=== PATIENT | male | born 1990 | race Caucasian/White ===

== ENCOUNTER 2018-11-07 14:33 | Inpatient (IN) ==
[2018-11-07 14:42] VITALS: BMI 23.1
--- NOTE | 2018-11-07 14:48 | DR.GENAD ---
HPI Time Seen Time Seen by Provider: 11/07/18 14:47 PCP Primary Care Physician: Kaya DO HPI Comment HPI Comment: PATIENT IS Complaint/Symptoms Chief Complaint Doctors Comments: FOUND ON FLOOR IN A SCHUSTER BLOOD 3 DAYS AGO. Chief Complaint:: PT. C/O LEFT LEG NUMBNESS, LEFT WRIST PAIN. LEFT ARM IS SWOLLEN. PT. STATES HE HAS BEEN FALLING SINCE YESTERDAY. PT. AMBULATORY WITH CRUTCHES. PT. STATES HIS FOUND HIM LYING IN THE FLOOR THIS AFTERNOON. PT. STATES "I MUST HAVE FALLEN OUT OF THE BED." PT. DOES NOT RECALL EVENTS. PT. STATES HE HAD AN OUT-PATIENT MRI DONE HERE YESTERDAY. PT. C/O RASH AND BLISTERS TO LEFT SIDE OF ABDOMEN. PT. WAS ALSO SEEN IN [facility] ON 11/06/18 AND WAS DIAGNOSED WITH SYNCOPE & LEFT ARM CONTUSION. 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 Past Surgical History: Yes Surgical History: Other Past Surgical History Comment: EYE SURGERY Family History History of Family Medical Conditions: No Social History Does patient currently use any type of tobacco product: Yes Have you used tobacco products in the last 12 months: Yes Type of Tobacco Use: Cigarettes Does any household member use tobacco: Yes Alcohol Use: None Do you use any recreational Drugs:: No Lives With: Spouse Lives Where: Home infectious screening In the last 2 months have you had wt loss of >10#?: NO Have you had fever, night sweats or hemotysis?: No Have you traveled outside the country in the last 6 months?: No Isolation: Standard ROS Review of Systems Constitutional: Weakness and Fatigue; negative Chills, Diaphoresis, Fever, Malaise and Loss of Appetite Eyes: Other (LEFT EYE BLINDNESS 2YRS AGO DUE TO TRAUMA.); negative Eye Pain, Blurred Vision, Tearing, Discharge, Photophobia and Diplopia ENTM: negative Ear Pain, Ear Discharge, Nose Discharge, Nose Congestion, Throat Pain and Tooth/Dental Pain Respiratoy: negative Moist Cough, Short of Breath, Wheezing and Hemoptysis Cardiovascular: negative Chest Pain, Edema and Palpitations Gastrointestinal/Abdominal: Diarrhea; negative Abdominal Pain, Constipation, [place] and Vomiting Genitourinary: No Symptoms Reported and See HPI; negative Dysuria, Frequency and Hematuria Neurological: Numbness, Paresthesia, Tingling, Weakness, Problems Walking and Speech Problem; negative Headache, Tremors and Dizziness Musculoskeletal: Back Pain (LOWER BACK PAIN.), Wrist (LT.), Knee (LT.) and Ankle (LT.) Integumentary: Rash and Bruises; negative Juandice Hematologic/Lymphatic: negative Easy Bruising, Swollen Glands and Lymphadenopathy Endocrine: Decreased Appetite; negative Increased Thirst and Increased Urine Psychiatric: No Symptoms Reported All Other Systems: Reviewed and Negative PE Vital Signs Vitals: Temperature 97.2 F Pulse Rate [Apical] 120 Pulse Rate 155 Respiratory Rate 12 Blood Pressure [Right Arm] 150/80 Blood Pressure 117/59 O2 Sat by Pulse Oximetry 97 General Limitations: No Limitations General Appearance: Alert and In No Apparent Distress Head Head Exam: Other Eyes Eye exam: Normal Appearance ENT ENT Exam: Normal Exam External Ear Exam: Normal External Inspection TM/Canal Exam: Bilateral: Normal Nose Exam: Normal Nose Exam Mouth Exam: Normal Inspection Throat Exam: Normal Inspection Neck Neck Exam: Normal Inspection Chest Chest Inspection: Normal Inspection Respiratory Respiratory Exam: Normal Lung Sounds Bilat Respiratory Exam: Bilateral: Clear to Auscultation Cardiovascular Cardiovascular Exam: Regular Rate and Normal Rhythm Abdominal Exam Abdominal Exam: Normal Inspection, Normal Bowel Sounds and Soft Extremities Extremities Exam: Normal Inspection Back Back Exam: Normal Inspection Neurologic Neurological Exam: Alert and Oriented X3 Psychiatric Psychiatric Exam: Normal Affect and Normal Mood Skin Skin Exam: Warm, Dry, Intact and Normal Color ROR Labs Reviewed Result Diagrams: 11/07/18 15:27 11/07/18 15:27 Laboratory: WBC 17.6 X10^3/uL (3.6-10.0) H 11/07/18 15:27 RBC 5.47 X10^6/uL (4.7-6.0) 11/07/18 15:27 Hgb 15.9 g/dL (13.5-18.0) 11/07/18 15:27 Hct 46.3 % (42.0-54.0) 11/07/18 15:27 MCV 84.8 fL (80.0-100.0) 11/07/18 15:27 MCH 29.2 pg (27.0-34.0) 11/07/18 15: MCHC 34.4 g/dL (33.0-35.0) 11/07/18: RDW 14.0 % (11.6-16.5) 11/07/18 15: Plt Count 173 X10^3/uL (150.0-450.0) 11/07/18: MPV 9.7 fL (7.4-11.0) 11/07/18: Neut % (Auto) 72.8 % (42.0-75.0) 11/07/18: Lymph % (Auto) 6.7 % (21.0-51.0) L 11/07/18: [place] % (Auto) 19.9 % (0.0-13.0) H 11/07/18: Eos % (Auto) 0.1 % (0.9-2.9) L 11/07/18 Baso % (Auto) 0.5 % (0.2-1.0) 11/07/18 Neut # (Auto) 12.8 x10^3/uL (2.2-4.8) H 11/07/18: Lymph # (Auto) 1.2 X10^3/uL (1.3-2.9) L 11/07/18 15: [place] # (Auto) 3.5 x10^3/uL (0.3-0.8) H 11/07/18: Eos # (Auto) 0.0 x10^3/uL (0.0-0.2) 11/07/18 Baso # (Auto) 0.1 X10^3/uL (0.0-0.1) 11/07/18 Absolute Nucleated RBC 0.1 /100WBC 11/07/18 INR Target Range - 11/07/18 INR 1.14 (0.8-1.3) 11/07/18 APTT 30.6 SECONDS (22.9-36.5) 11/07/18 PTT Comment - 11/07/18 Sodium 124 mmol/L (136-145) L* 11/07/18 15:27 Corrected Sodium 125 mmol/L (136-145) L 11/07/18 15:27 Potassium 5.8 mmol/L (3.5-5.1) H 11/07/18 15:27 Chloride 88 mmol/L (98-107) L 11/07/18 15:27 Carbon Dioxide 24.5 mmol/L (21-32) 11/07/18 15:27 BUN 61 mg/dL (7-18) H 11/07/18 15:27 Creatinine 4.42 mg/dL (0.70-1.30) H 11/07/18 15:27 Est GFR (MDRD) Af Amer 20 (>60) L 11/07/18 15:27 Est GFR (MDRD) Non-Af 17 (>60) L 11/07/18 15:27 Glucose 125 mg/dL (65-99) H 11/07/18 15:27 Lactic Acid 0.8 mmol/L (0.4-2.0) 11/07/18 15:27 Calcium 9.5 mg/dL (8.5-10.1) 11/07/18 15:27 Corrected Calcium 10.2 mg/dL (8.5-10.1) H 11/07/18 15:27 Total Bilirubin 0.70 mg/dL (0.2-1.0) 11/07/18 15:27 AST 791 Units/L (15-37) H 11/07/18 15:27 ALT 217 Units/L (12-78) H 11/07/18 15:27 Alkaline Phosphatase 77 Units/L (46-116) 11/07/18 15:27 Creatine Kinase > 73355 Units/L (39-308) H 11/07/18 15:27 CK-MB (CK-2) 125.4 ng/mL (0-4.0) H* 11/07/18 15:27 CK/CKMB % Calc 0.0 % (<4) 11/07/18 15:27 Troponin I < 0.04 ng/mL (0-1.5) 11/07/18 15:27 C-Reactive Protein 310.70 mg/L (0-3.0) H 11/07/18 15:27 Total Protein 7.5 g/dL (6.4-8.2) 11/07/18 15: Albumin 3.1 g/dL (3.4-5.0) L 11/07/18 15: Globulin 4.4 g/dL (2.5-4.5) 11/07/18 15:27 Albumin/Globulin Ratio 0.7 Ratio (1.1-2.1) L 11/07/18 15:27 Specimen Type Catherized urine 11/07/18 18:32 Urine Color Yellow (YELLOW) 11/07/18 18:32 Urine Appearance Slightly hazy (CLEAR) 11/07/18 18:32 Urine pH 5.0 (5.0 - 8.0) 11/07/18 18:32 Ur Specific [place] 1.025 (1.000-1.030) 11/07/18 18:32 Urine Protein 2+ (NEGATIVE) 11/07/18 18:32 Urine Glucose (UA) Negative (NEGATIVE) 11/07/18 18:32 Urine Ketones Negative (NEGATIVE) 11/07/18 18:32 Urine Occult Blood 5+ (NEGATIVE) 11/07/18 18:32 Urine Nitrite Negative (NEGATIVE) 11/07/18 18:32 Urine Bilirubin Negative (NEGATIVE) 11/07/18 18:32 Urine Urobilinogen Normal (NORMAL) 11/07/18 18:32 Ur Leukocyte Esterase Negative (NEGATIVE) 11/07/18 18:32 Urine RBC 10-20 /HPF (NONE SEEN) 11/07/18 18:32 Urine WBC 0-2 /HPF (NONE SEEN) 11/07/18 18:32 Ur Squamous Epith Cells Few /HPF (NEGATIVE) 11/07/18 18:32 Amorphous Sediment 2+ /HPF (NEGATIVE) 11/07/18 18:32 Urine Bacteria Trace /HPF (NEGATIVE) 11/07/18 18:32 Hyaline Casts Few /LPF (NEGATIVE) 11/07/18 18:32 Ur Culture Indicated? No/not indicated 11/07/18 18:32 Urine Opiates Screen Negative (NEG=<300) 11/07/18 18:32 Urine Methadone Screen Negative (NEG=<300) 11/07/18 18:32 Ur Barbiturates Screen Negative (NEG=<200) 11/07/18 18:32 Ur Phencyclidine Scrn Negative (NEG=<25) 11/07/18 18:32 Ur Amphetamines Screen Positive (NEG=<1000) 11/07/18 18:32 U Benzodiazepines Scrn Positive (NEG=<200) 11/07/18 18:32 Urine Cocaine Screen Negative (NEG=<300) 11/07/18 18:32 U Marijuana (THC) Screen Negative (NEG=<50) 11/07/18 18:32
[2018-11-07 15:36] LABS: BASOPHILS # (AUTO) 0.1 X10^3/uL (0.0-0.1); BASOPHILS % (AUTO) 0.5 % (0.2-1.0); EOSINOPHILS % (AUTO) 0.1 % (0.9-2.9); HEMATOCRIT 46.3 % (42.0-54.0); HEMOGLOBIN 15.9 g/dL (13.5-18.0); LYMPHOCYTES # (AUTO) 1.2 X10^3/uL (1.3-2.9); LYMPHOCYTES % (AUTO) 6.7 % (21.0-51.0); MEAN CORPUSCULAR HEMOGLOBIN 29.2 pg (27.0-34.0); MEAN CORPUSCULAR HGB CONC 34.4 g/dL (33.0-35.0); MEAN CORPUSCULAR VOLUME 84.8 fL (80.0-100.0); MEAN PLATELET VOLUME 9.7 fL (7.4-11.0); MONOCYTES # (AUTO) 3.5 x10^3/uL (0.3-0.8); MONOCYTES % (AUTO) 19.9 % (0.0-13.0); NEUTROPHILS # (AUTO) 12.8 x10^3/uL (2.2-4.8); NEUTROPHILS % (AUTO) 72.8 % (42.0-75.0); PLATELET COUNT 173 X10^3/uL (150.0-450.0); RED BLOOD COUNT 5.47 X10^6/uL (4.7-6.0); WHITE BLOOD COUNT 17.6 X10^3/uL (3.6-10.0)
--- NOTE | 2018-11-07 15:39 | RAD ---
History: Left wrist pain after fall 3 days ago Study: Three views of the left wrist Findings: No fracture or subluxation or periosteal reaction or marginal erosion is demonstrated. Impression: Negative Reported By:
[2018-11-07 15:42] LABS: CALCIUM 9.5 mg/dL (8.5-10.1); CARBON DIOXIDE 24.5 mmol/L (21-32); CREATININE 4.42 mg/dL (0.70-1.30)
[2018-11-07 15:47] LABS: ALBUMIN 3.1 g/dL (3.4-5.0); COR CA(FOR HYPOALB) 10.2 mg/dL (8.5-10.1); TOTAL PROTEIN 7.5 g/dL (6.4-8.2)
[2018-11-07 15:51] LABS: LACTIC ACID 0.8 mmol/L (0.4-2.0)
[2018-11-07] MEDS ORDERED: NS 1000 ML 1,000 ML ONE (15:52)
[2018-11-07] MEDS ORDERED: NS 1000 ML 1,000 ML IV ONE (16:08)
--- NOTE | 2018-11-07 17:06 | VAS ---
HISTORY: Severe left arm swelling Study: Venous Doppler Comparison: None TECHNIQUE: Multiple ward scale and color flow Doppler images of the deep venous system were obtained of the left upper extremity FINDINGS: There is normal respiratory phasicity, compression and augmentation of the extremity veins without evidence of acute DVT. IMPRESSION: 1. Negative for DVT. Reported By:
--- NOTE | 2018-11-07 17:21 | RAD ---
HISTORY: Pain, swelling Study: Three views left elbow Comparison: None Findings: Normal alignment. No acute fracture or dislocation. The soft tissues are unremarkable. No joint effusion. IMPRESSION: 1. No acute osseous abnormality. Reported By:
[2018-11-07 17:49] LABS: TROPONIN I < 0.04 ng/mL (0-1.5)
[2018-11-07 17:52] LABS: CREATINE KINASE > 20000 Units/L (39-308); CREATINE KINASE MB 125.4 ng/mL (0-4.0)
[2018-11-07] MEDS ORDERED: NS 1000 ML 1,000 ML IV SCH (18:00)
[2018-11-07] MEDS ORDERED: LR 1000 ML IV 1,000 ML ONE (18:02)
[2018-11-07] MEDS ORDERED: LR 1000 ML IV 1,000 ML IV ONE ×2 (18:36→19:18)
[2018-11-07 18:44] LABS: BILIRUBIN,URINE NEGATIVE (NEGATIVE); BLOOD/HEMOGLOBIN,URINE 5+ (NEGATIVE); GLUCOSE, URINE NEGATIVE (NEGATIVE); KETONES,URINE NEGATIVE (NEGATIVE); LEUKOCYTE ESTERASE ,URINE NEGATIVE (NEGATIVE); NITRITES,URINE NEGATIVE (NEGATIVE); PROTEIN,URINE 2+ (NEGATIVE); UROBILINOGEN,URINE NORMAL (NORMAL)
[2018-11-07 18:48] LABS: AMORPHOUS SEDIMENT,UR 2+ /HPF (NEGATIVE); APPEARANCE,URINE SLIGHTLY HAZY (CLEAR); BACTERIA,URINE TRACE /HPF (NEGATIVE); COLOR,URINE YELLOW (YELLOW); SQUAMOUS EPITHELIAL CELL,UR FEW /HPF (NEGATIVE)
[2018-11-07 18:49] LABS: HYALINE CASTS, URINE FEW /LPF (NEGATIVE)
[2018-11-07] MEDS: LR 1000 ML IV 1,000 ML IV SCH (20:54)
[2018-11-07] MEDS ORDERED: LR 1000 ML IV 1,000 ML IV SCH (21:00)
[2018-11-07] MEDS: BUPRENORPHINE HCL 8 MG SL SCH (22:00)
[2018-11-07] MEDS ORDERED: MORPHINE SULFATE INJ 4 MG IVP PRN (23:30)
[2018-11-07] MEDS ORDERED: ZOFRAN INJ 4 MG VIAL IVP PRN (23:30)
[2018-11-08 00:34] LABS: BLOOD UREA NITROGEN 58 mg/dL (7-18); CALCIUM 7.9 mg/dL (8.5-10.1); CARBON DIOXIDE 27.9 mmol/L (21-32); CHLORIDE 95 mmol/L (98-107); CREATININE 3.14 mg/dL (0.70-1.30); SODIUM 130 mmol/L (136-145); eGFR NON BLACK RACES 25 (>60)
[2018-11-08] MEDS: LR 1000 ML IV 1,000 ML IV SCH ×4 (01:47→21:00)
[2018-11-08] MEDS: BUPRENORPHINE HCL 8 MG SL SCH ×2 (06:18→14:18)
[2018-11-08 06:29] LABS: BASOPHILS % (AUTO) 0.3 % (0.2-1.0); EOSINOPHILS # (AUTO) 0.1 x10^3/uL (0.0-0.2); EOSINOPHILS % (AUTO) 0.7 % (0.9-2.9); HEMATOCRIT 37.3 % (42.0-54.0); HEMOGLOBIN 13.1 g/dL (13.5-18.0); LYMPHOCYTES # (AUTO) 1.5 X10^3/uL (1.3-2.9); LYMPHOCYTES % (AUTO) 17.8 % (21.0-51.0); MEAN CORPUSCULAR HEMOGLOBIN 29.9 pg (27.0-34.0); MEAN CORPUSCULAR HGB CONC 35.1 g/dL (33.0-35.0); MEAN PLATELET VOLUME 9.5 fL (7.4-11.0); MONOCYTES # (AUTO) 1.5 x10^3/uL (0.3-0.8); MONOCYTES % (AUTO) 17.1 % (0.0-13.0); NEUTROPHILS # (AUTO) 5.5 x10^3/uL (2.2-4.8); NEUTROPHILS % (AUTO) 64.1 % (42.0-75.0); PLATELET COUNT 121 X10^3/uL (150.0-450.0); RED BLOOD COUNT 4.38 X10^6/uL (4.7-6.0); RED CELL DISTRIBUTION WIDTH 13.8 % (11.6-16.5); WHITE BLOOD COUNT 8.6 X10^3/uL (3.6-10.0)
[2018-11-08 06:30] LABS: ALANINE AMINOTRANSFERASE 142 Units/L (12-78); ALBUMIN 2.2 g/dL (3.4-5.0); ALKALINE PHOSPHATASE 61 Units/L (46-116); ASPARTATE AMINO TRANSFERASE 407 Units/L (15-37); BLOOD UREA NITROGEN 50 mg/dL (7-18); CALCIUM 8.4 mg/dL (8.5-10.1); CARBON DIOXIDE 28.1 mmol/L (21-32); CHLORIDE 95 mmol/L (98-107); COR CA(FOR HYPOALB) 9.8 mg/dL (8.5-10.1); CREATININE 2.48 mg/dL (0.70-1.30); SODIUM 131 mmol/L (136-145); TOTAL PROTEIN 5.8 g/dL (6.4-8.2); eGFR NON BLACK RACES 33 (>60)
[2018-11-08 07:21] LABS: TROPONIN I < 0.02 ng/mL (0-1.5)
[2018-11-08 08:24] LABS: CREATINE KINASE > 20000 Units/L (39-308)
[2018-11-08] MEDS: CIPRO IV 400 MG PREMIX* 400 MG/200 ML IV.SOLN. IV SCH ×2 (10:05→20:48)
[2018-11-08] MEDS: XANAX PO SCH ×3 (10:06→21:45)
[2018-11-08] MEDS ORDERED: MORPHINE SULFATE INJ 10 MG ONE (11:54)
[2018-11-08] MEDS ORDERED: MORPHINE SULFATE INJ 4 MG IVP ONE ×2 (11:59→14:56)
--- NOTE | 2018-11-08 14:43 | MRI ---
HISTORY: Syncope, rule out brain tumor Study: MRI brain without contrast Comparison: CT performed November 06, 2018 Technique: Multiplanar, multi-sequence MRI of the brain was obtained utilizing standard departmental protocol without the administration of intravenous contrast. Findings: The midline structures appear unremarkable. The evaluation of the brain parenchyma demonstrates no abnormal signal characteristics to suggest intraparenchymal mass or hemorrhage. No extra-axial fluid collections are observed. The ventricular system appears symmetric and nondilated. The flow voids on both T1 and T2 weighted imaging appear unremarkable. Evaluation of the diffusion weighted imaging does not demonstrate abnormal signal characteristics to suggest acute ischemic change. There is chronic left ethmoid and maxillary sinus mucosal thickening. There is abnormal appearance of the right globe which is asymmetrically small as compared to the right with peripheral somewhat lenticular shaped T2 and T1 hyperintensity extending from anterior to posterior for which differential considerations include previous vitreous hemorrhage and choroidal detachment. Correlation with ophthalmologic exam and any prior history of trauma is recommended. IMPRESSION: Normal MRI of brain without acute intracranial process and with no obvious mass on this noncontrast exam. Chronic left ethmoid and maxillary sinusitis. Abnormal appearance of the right globe with differential considerations as above. Reported By:
[2018-11-08] MEDS ORDERED: ATIVAN TAB 1 MG PO NR (15:00)
--- NOTE | 2018-11-08 15:01 | RAD ---
History: Left hip pain Study: AP pelvis and frog-leg left hip Findings: There is no fracture or subluxation or joint space narrowing or marginal osteophyte formation. The pubic rami are intact. Impression: Negative Reported By:
--- NOTE | 2018-11-08 15:07 | MRI ---
HISTORY: Back pain and left leg numbness Study: MRI cervical spine without contrast Comparison: None Technique: Multiplanar, multisequence MRI of the cervical spine was obtained utilizing standard departmental protocol. Findings: There is image degradation secondary to patient motion artifact. Paraspinal soft tissues and the base of the brain are unremarkable. No definitive abnormal signal intensity is seen within the central canal or cord. No marrow replacement process is identified. There is preservation of vertebral body height. The patient has congenitally short pedicles which in combination with mild discogenic degenerative disease contributes to the findings of stenosis below. There is mild reversal of the cervical lordosis. C2 -- C3: Unremarkable. C3 -- C4: Mild osseous ridging without central spinal or foraminal stenosis. C4 -- C5: Small broad-based disc bulge without central spinal or foraminal stenosis. C5 -- C6: Broad-based disc osteophyte complex causing mild central spinal stenosis and cord compression without cord edema or myelomalacia. There is no significant foraminal stenosis. C6 -- C7: Broad-based disc osteophyte complex lateralizing to the left causing mild central spinal stenosis without significant cord compression or definite cord edema/myelomalacia. There is mild left lateral recess stenosis. C7 -- T1: No central spinal or foraminal stenosis. IMPRESSION: Image degradation secondary to patient motion artifact. Mild discogenic degenerative disease most severe at C5-6 and C6-7. Reported By:
--- NOTE | 2018-11-08 15:38 | MRI ---
HISTORY: Back pain and left-sided weakness Study: MRI thoracic spine without contrast Comparison: None Technique: Multi planar, multi sequence MRI images of the thoracic spine were reviewed without the administration of intravenous contrast. Findings: There is image degradation secondary to patient motion artifact. There is preservation of vertebral body height and alignment. No acute fracture or subluxation is seen. There is no marrow replacement process. At T7-8, there is disc desiccation and loss of intervertebral disc space height with a small central and right paracentral disc protrusion/extrusion causing mild right-sided central spinal stenosis and cord compression without cord edema or myelomalacia and with mild right lateral recess stenosis. There is Schmorl node formation at T8-9. Additionally, there is segmental T2 hyperintensity within the central cord extending from the level of T8-9 to T9-10 spanning approximately 2.5 cm most consistent with syringohydromyelia. An underlying mass is exceedingly unlikely, but clinical correlation and follow-up recommended. If further imaging evaluation is warranted, an MRI without and with contrast would be recommended in follow-up on a routine outpatient nonemergent basis. The conus terminates normally at T12-L1. IMPRESSION: Mild discogenic degenerative disease most severe at T7-8 with a small right-sided disc protrusion/extrusion at this level. 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 Reported By:
[2018-11-08] MEDS: SUBOXONE FILM SL SCH (21:45)
[2018-11-09 04:34] LABS: BASOPHILS % (AUTO) 0.3 % (0.2-1.0); EOSINOPHILS # (AUTO) 0.1 x10^3/uL (0.0-0.2); EOSINOPHILS % (AUTO) 1.1 % (0.9-2.9); HEMATOCRIT 30.6 % (42.0-54.0); HEMOGLOBIN 10.7 g/dL (13.5-18.0); LYMPHOCYTES # (AUTO) 1.7 X10^3/uL (1.3-2.9); MEAN CORPUSCULAR HEMOGLOBIN 29.8 pg (27.0-34.0); MEAN CORPUSCULAR VOLUME 85.2 fL (80.0-100.0); MEAN PLATELET VOLUME 9.7 fL (7.4-11.0); MONOCYTES % (AUTO) 13.6 % (0.0-13.0); NEUTROPHILS # (AUTO) 4.6 x10^3/uL (2.2-4.8); PLATELET COUNT 120 X10^3/uL (150.0-450.0); RED BLOOD COUNT 3.59 X10^6/uL (4.7-6.0); RED CELL DISTRIBUTION WIDTH 13.6 % (11.6-16.5); WHITE BLOOD COUNT 7.5 X10^3/uL (3.6-10.0)
[2018-11-09 04:52] LABS: ALANINE AMINOTRANSFERASE 103 Units/L (12-78); ALBUMIN 1.9 g/dL (3.4-5.0); ALKALINE PHOSPHATASE 50 Units/L (46-116); ASPARTATE AMINO TRANSFERASE 339 Units/L (15-37); BLOOD UREA NITROGEN 20 mg/dL (7-18); CARBON DIOXIDE 30.7 mmol/L (21-32); CHLORIDE 99 mmol/L (98-107); COR CA(FOR HYPOALB) 9.7 mg/dL (8.5-10.1); CREATININE 1.09 mg/dL (0.70-1.30); SODIUM 135 mmol/L (136-145); eGFR NON BLACK RACES > 60 (>60)
[2018-11-09] MEDS: XANAX PO SCH ×3 (05:18→22:00)
[2018-11-09] MEDS: SUBOXONE FILM SL SCH ×3 (05:18→22:00)
[2018-11-09] MEDS ORDERED: POTASSIUM CHL 60 MEQ/NS 0.45% 500 ML IV PRN (05:33)
[2018-11-09] MEDS ORDERED: KLOR-CON PO PRN (05:33)
[2018-11-09] MEDS ORDERED: POTASSIUM CHL 40 MEQ/NS 0.45% 500 ML IV PRN (05:33)
[2018-11-09] MEDS ORDERED: POTASSIUM CHLORIDE LIQ 20 MEQ UDC PO PRN (05:33)
[2018-11-09] MEDS ORDERED: MICRO K EXTEN CAP 10 MEQ PO PRN (05:33)
[2018-11-09] MEDS ORDERED: K-RIDER 10 MEQ/NS 100 ML 10 MEQ/100 ML BAG IV PRN (05:33)
[2018-11-09 05:35] LABS: CREATINE KINASE 17968 Units/L (39-308)
[2018-11-09] MEDS: NS 1000 ML 1,000 ML IV SCH ×5 (05:40→16:27)
[2018-11-09] MEDS: ALBUMIN HUMAN 25%- 100 ML 100 ML IV SCH (10:45)
[2018-11-09] MEDS: CIPRO IV 400 MG PREMIX* 400 MG/200 ML IV.SOLN. IV SCH ×2 (10:45→20:28)
[2018-11-09] MEDS: PERCOCET TAB 5/325 MG PO PRN (10:46)
[2018-11-09] MEDS: LOVENOX INJ 40 MG SYR SC SCH (10:46)
--- NOTE | 2018-11-09 16:52 | DR.PROGNOT ---
Hospital Progress Notes - Progress Note for Day of: Progress Note Date: 11/09/18 - Chief Complaint Chief Complaint: feeling better today . Lt leg and Lt arm pain is less and less swelling . renal function is improving . still unable to move Lt leg with diminished sensation . Lt arm movement is better today . - Past Medical Family Social History Allergies: Allergies No Known Drug Allergies Allergy (Verified 11/07/18 14:42) - Vital Signs Vital Signs: Temperature 98.9 F Pulse Rate [Apical] 128 Pulse Rate 117 Respiratory Rate 17 Blood Pressure [Right Arm] 137/70 Blood Pressure 131/75 O2 Sat by Pulse Oximetry 97 - Physical Exam Oriented: Normal Eyes: Other (blind Rt eye) Nose: Normal Respiratory: Normal Cardiovascular: Normal : Normal GI:Auscultation: Normal GI:Palpation: Normal GI: Tenderness: Normal, LLQ Skin: negative: Maculopapular Musculoskeletal: Left (Lt thigh swelling is less . 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 , sensation is better today .distal pulses atr ++.) Speech Pattern: Clear - Laboratory and Diagnostics Result Diagrams: 11/09/18 04:01 11/09/18 04:01 Labs: Laboratory WBC 7.5 X10^3/uL (3.6-10.0) 11/09/18 04:01 RBC 3.59 X10^6/uL (4.7-6.0) L 11/09/18 04:01 Hgb 10.7 g/dL (13.5-18.0) L D 11/09/18 04:01 Hct 30.6 % (42.0-54.0) L 11/09/18 04:01 MCV 85.2 fL (80.0-100.0) 11/09/18 04:01 MCH 29.8 pg (27.0-34.0) 11/09/18 04:01 MCHC 35.0 g/dL (33.0-35.0) 11/09/18 04:01 RDW 13.6 % (11.6-16.5) 11/09/18 04:01 Plt Count 120 X10^3/uL (150.0-450.0) L 11/09/18 04:01 MPV 9.7 fL (7.4-11.0) 11/09/18 04:01 Neut % (Auto) 62.0 % (42.0-75.0) 11/09/18 04:01 Lymph % (Auto) 23.0 % (21.0-51.0) 11/09/18 04:01 [place] % (Auto) 13.6 % (0.0-13.0) H 11/09/18 04:01 Eos % (Auto) 1.1 % (0.9-2.9) 11/09/18 04:01 Baso % (Auto) 0.3 % (0.2-1.0) 11/09/18 04:01 Neut # (Auto) 4.6 x10^3/uL (2.2-4.8) 11/09/18 04:01 Lymph # (Auto) 1.7 X10^3/uL (1.3-2.9) 11/09/18 04:01 [place] # (Auto) 1.0 x10^3/uL (0.3-0.8) H 11/09/18 04:01 Eos # (Auto) 0.1 x10^3/uL (0.0-0.2) 11/09/18 04:01 Baso # (Auto) 0.0 X10^3/uL (0.0-0.1) 11/09/18 04:01 Absolute Nucleated RBC 0.0 /100WBC 11/09/18 04:01 INR Target Range - 11/07/18 15:27 INR 1.14 (0.8-1.3) 11/07/18 15:27 APTT 30.6 SECONDS (22.9-36.5) 11/07/18 15:27 PTT Comment - 11/07/18 15:27 Sodium 135 mmol/L (136-145) L 11/09/18 04:01 Corrected Sodium TNP 11/09/18 04:01 Potassium 3.5 mmol/L (3.5-5.1) 11/09/18 04:01 Chloride 99 mmol/L (98-107) 11/09/18 04:01 Carbon Dioxide 30.7 mmol/L (21-32) 11/09/18 04:01 BUN 20 mg/dL (7-18) H 11/09/18 04:01 Creatinine 1.09 mg/dL (0.70-1.30) 11/09/18 04:01 Est GFR (MDRD) Af Amer > 60 (>60) 11/09/18 04:01 Est GFR (MDRD) Non-Af > 60 (>60) 11/09/18 04:01 Glucose 107 mg/dL (65-99) H 11/09/18 04:01 Lactic Acid 0.8 mmol/L (0.4-2.0) 11/07/18 15:27 Calcium 8.0 mg/dL (8.5-10.1) L 11/09/18 04:01 Corrected Calcium 9.7 mg/dL (8.5-10.1) 11/09/18 04:01 Magnesium 1.6 mg/dL (1.7-2.9) L 11/09/18 04:01 Total Bilirubin 0.60 mg/dL (0.2-1.0) 11/09/18 04:01 AST 339 Units/L (15-37) H 11/09/18 04:01 ALT 103 Units/L (12-78) H 11/09/18 04:01 Alkaline Phosphatase 50 Units/L (46-116) 11/09/18 04:01 Creatine Kinase 82542 Units/L (39-308) H 11/09/18 04:01 CK-MB (CK-2) 34.0 ng/mL (0-4.0) H* 11/08/18 05:18 CK/CKMB % Calc 0.0 % (<4) 11/08/18 05:18 Troponin I < 0.02 ng/mL (0-1.5) 11/08/18 05:18 C-Reactive Protein 310.70 mg/L (0-3.0) H 11/07/18 15:27 Total Protein 5.0 g/dL (6.4-8.2) L 11/09/18 04:01 Albumin 1.9 g/dL (3.4-5.0) L 11/09/18 04:01 Globulin 3.1 g/dL (2.5-4.5) 11/09/18 04:01 Albumin/Globulin Ratio 0.6 Ratio (1.1-2.1) L 11/09/18 04:01 Specimen Type Catherized urine 11/07/18 18:32 Urine Color Yellow (YELLOW) 11/07/18 18:32 Urine Appearance Slightly hazy (CLEAR) 11/07/18 18:32 Urine pH 5.0 (5.0 - 8.0) 11/07/18 18:32 Ur Specific [place] 1.025 (1.000-1.030) 11/07/18 18:32 Urine Protein 2+ (NEGATIVE) 11/07/18 18:32 Urine Glucose (UA) Negative (NEGATIVE) 11/07/18 18:32 Urine Ketones Negative (NEGATIVE) 11/07/18 18:32 Urine Occult Blood 5+ (NEGATIVE) 11/07/18 18:32 Urine Nitrite Negative (NEGATIVE) 11/07/18 18:32 Urine Bilirubin Negative (NEGATIVE) 11/07/18 18:32 Urine Urobilinogen Normal (NORMAL) 11/07/18 18:32 Ur Leukocyte Esterase Negative (NEGATIVE) 11/07/18 18:32 Urine RBC 10-20 /HPF (NONE SEEN) 11/07/18 18:32 Urine WBC 0-2 /HPF (NONE SEEN) 11/07/18 18:32 Ur Squamous Epith Cells Few /HPF (NEGATIVE) 11/07/18 18:32 Amorphous Sediment 2+ /HPF (NEGATIVE) 11/07/18 18:32 Urine Bacteria Trace /HPF (NEGATIVE) 11/07/18 18:32 Hyaline Casts Few /LPF (NEGATIVE) 11/07/18 18:32 Ur Culture Indicated? No/not indicated 11/07/18 18:32 Urine Opiates Screen Negative (NEG=<300) 11/07/18 18:32 Urine Methadone Screen Negative (NEG=<300) 11/07/18 18:32 Ur Barbiturates Screen Negative (NEG=<200) 11/07/18 18:32 Ur Phencyclidine Scrn Negative (NEG=<25) 11/07/18 18:32 Ur Amphetamines Screen Positive (NEG=<1000) 11/07/18 18:32 U Benzodiazepines Scrn Positive (NEG=<200) 11/07/18 18:32 Urine Cocaine Screen Negative (NEG=<300) 11/07/18 18:32 U Marijuana (THC) Screen Negative (NEG=<50) 11/07/18 18:32 - Assessment and Plan 1: rhabdomyopathy Lt thigh and Lt arm with compartment syndrome (improving ). acute renal injury (improving ). chronic back pain and disc disease (followed by his PCP for pain management ). started on oral pain medication . same IVF and close observation for his neurological injury
[2018-11-10] MEDS: NS 1000 ML 1,000 ML IV SCH ×5 (00:15→19:08)
[2018-11-10 05:21] LABS: BASOPHILS % (AUTO) 0.3 % (0.2-1.0); EOSINOPHILS # (AUTO) 0.2 x10^3/uL (0.0-0.2); HEMATOCRIT 28.3 % (42.0-54.0); LYMPHOCYTES # (AUTO) 1.9 X10^3/uL (1.3-2.9); LYMPHOCYTES % (AUTO) 24.3 % (21.0-51.0); MEAN CORPUSCULAR HEMOGLOBIN 30.1 pg (27.0-34.0); MEAN CORPUSCULAR HGB CONC 35.3 g/dL (33.0-35.0); MEAN CORPUSCULAR VOLUME 85.4 fL (80.0-100.0); MEAN PLATELET VOLUME 8.7 fL (7.4-11.0); MONOCYTES # (AUTO) 1.1 x10^3/uL (0.3-0.8); MONOCYTES % (AUTO) 13.9 % (0.0-13.0); NEUTROPHILS # (AUTO) 4.7 x10^3/uL (2.2-4.8); NEUTROPHILS % (AUTO) 59.5 % (42.0-75.0); PLATELET COUNT 155 X10^3/uL (150.0-450.0); RED BLOOD COUNT 3.32 X10^6/uL (4.7-6.0); RED CELL DISTRIBUTION WIDTH 13.6 % (11.6-16.5); WHITE BLOOD COUNT 7.9 X10^3/uL (3.6-10.0)
[2018-11-10] MEDS: SUBOXONE FILM SL SCH ×3 (05:29→21:50)
[2018-11-10] MEDS: XANAX PO SCH ×3 (05:29→21:50)
[2018-11-10 05:42] LABS: ALANINE AMINOTRANSFERASE 89 Units/L (12-78); ALBUMIN 2.1 g/dL (3.4-5.0); ALKALINE PHOSPHATASE 43 Units/L (46-116); ASPARTATE AMINO TRANSFERASE 262 Units/L (15-37); BLOOD UREA NITROGEN 7 mg/dL (7-18); CALCIUM 8.1 mg/dL (8.5-10.1); CARBON DIOXIDE 29.1 mmol/L (21-32); CHLORIDE 102 mmol/L (98-107); COR CA(FOR HYPOALB) 9.6 mg/dL (8.5-10.1); CREATININE 0.75 mg/dL (0.70-1.30); SODIUM 138 mmol/L (136-145); TOTAL PROTEIN 5.1 g/dL (6.4-8.2); eGFR NON BLACK RACES > 60 (>60)
[2018-11-10 05:55] LABS: CREATINE KINASE 12381 Units/L (39-308)
[2018-11-10] MEDS: PERCOCET TAB 5/325 MG PO PRN ×3 (07:10→19:08)
[2018-11-10] MEDS: K-DUR TAB 20 MEQ PO PRN (09:14)
[2018-11-10] MEDS: ALBUMIN HUMAN 25%- 100 ML 100 ML IV SCH (09:14)
[2018-11-10] MEDS: CIPRO IV 400 MG PREMIX* 400 MG/200 ML IV.SOLN. IV SCH ×2 (09:15→21:01)
[2018-11-10] MEDS: LOVENOX INJ 40 MG SYR SC SCH (09:16)
[2018-11-10] MEDS ORDERED: PERCOCET TAB 5/325 MG PO PRN (09:54)
[2018-11-10] MEDS ORDERED: RESTORIL CAP 15 MG PO PRN (09:57)
--- NOTE | 2018-11-10 10:10 | DR.PROGNOT ---
Hospital Progress Notes - Progress Note for Day of: Progress Note Date: 11/10/18 - Chief Complaint Chief Complaint: having more Lt leg pain today . swelling is the same. pain medicine is not controlling the pain and Pt is unable to sleep.. renal function is normal now . very limited movement Lt leg with diminished sensation . Lt arm movement and swelling is better . having swelling of scrotum . - Past Medical Family Social History Allergies: Allergies No Known Drug Allergies Allergy (Verified 11/07/18 14:42) - Vital Signs Vital Signs: Temperature 99.7 F Pulse Rate [Apical] 111 Pulse Rate 117 Respiratory Rate 16 Blood Pressure [Right Arm] 129/62 Blood Pressure 131/75 O2 Sat by Pulse Oximetry 97 - Physical Exam Oriented: Normal Eyes: Other (blind Rt eye) Nose: Normal Respiratory: Normal Cardiovascular: Normal : Normal GI:Auscultation: Normal GI:Palpation: Normal GI: Tenderness: Normal, LLQ Skin: negative: Maculopapular Musculoskeletal: Left (Lt thigh swelling is down to the knee with erythema involving the medial thigh . asphalt still operator to pressure , sensation is better today .distal pulses atr ++.Lt arm is still edymetous but able to move the elbow and wrist , radial pulse is ++) Speech Pattern: Clear - Laboratory and Diagnostics Result Diagrams: 11/10/18 04:02 11/10/18 04:02 Labs: Laboratory WBC 7.9 X10^3/uL (3.6-10.0) 11/10/18 04:02 RBC 3.32 X10^6/uL (4.7-6.0) L 11/10/18 04:02 Hgb 10.0 g/dL (13.5-18.0) L 11/10/18 04:02 Hct 28.3 % (42.0-54.0) L 11/10/18 04:02 MCV 85.4 fL (80.0-100.0) 11/10/18 04:02 MCH 30.1 pg (27.0-34.0) 11/10/18 04:02 MCHC 35.3 g/dL (33.0-35.0) H 11/10/18 04:02 RDW 13.6 % (11.6-16.5) 11/10/18 04:02 Plt Count 155 X10^3/uL (150.0-450.0) 11/10/18 04:02 MPV 8.7 fL (7.4-11.0) 11/10/18 04:02 Neut % (Auto) 59.5 % (42.0-75.0) 11/10/18 04:02 Lymph % (Auto) 24.3 % (21.0-51.0) 11/10/18 04:02 [place] % (Auto) 13.9 % (0.0-13.0) H 11/10/18 04:02 Eos % (Auto) 2.0 % (0.9-2.9) 11/10/18 04:02 Baso % (Auto) 0.3 % (0.2-1.0) 11/10/18 04:02 Neut # (Auto) 4.7 x10^3/uL (2.2-4.8) 11/10/18 04:02 Lymph # (Auto) 1.9 X10^3/uL (1.3-2.9) 11/10/18 04:02 [place] # (Auto) 1.1 x10^3/uL (0.3-0.8) H 11/10/18 04:02 Eos # (Auto) 0.2 x10^3/uL (0.0-0.2) 11/10/18 04:02 Baso # (Auto) 0.0 X10^3/uL (0.0-0.1) 11/10/18 04:02 Absolute Nucleated RBC 0.0 /100WBC 11/10/18 04:02 INR Target Range - 11/07/18 15:27 INR 1.14 (0.8-1.3) 11/07/18 15:27 APTT 30.6 SECONDS (22.9-36.5) 11/07/18 15:27 PTT Comment - 11/07/18 15:27 Sodium 138 mmol/L (136-145) 11/10/18 04:02 Corrected Sodium TNP 11/10/18 04:02 Potassium 3.4 mmol/L (3.5-5.1) L 11/10/18 04:02 Chloride 102 mmol/L (98-107) 11/10/18 04:02 Carbon Dioxide 29.1 mmol/L (21-32) 11/10/18 04:02 BUN 7 mg/dL (7-18) 11/10/18 04:02 Creatinine 0.75 mg/dL (0.70-1.30) 11/10/18 04:02 Est GFR (MDRD) Af Amer > 60 (>60) 11/10/18 04:02 Est GFR (MDRD) Non-Af > 60 (>60) 11/10/18 04:02 Glucose 88 mg/dL (65-99) 11/10/18 04:02 Lactic Acid 0.8 mmol/L (0.4-2.0) 11/07/18 15:27 Calcium 8.1 mg/dL (8.5-10.1) L 11/10/18 04:02 Corrected Calcium 9.6 mg/dL (8.5-10.1) 11/10/18 04:02 Magnesium 1.6 mg/dL (1.7-2.9) L 11/09/18 04:01 Total Bilirubin 0.80 mg/dL (0.2-1.0) 11/10/18 04:02 AST 262 Units/L (15-37) H 11/10/18 04:02 ALT 89 Units/L (12-78) H 11/10/18 04:02 Alkaline Phosphatase 43 Units/L (46-116) L 11/10/18 04:02 Creatine Kinase 06125 Units/L (39-308) H 11/10/18 04:02 CK-MB (CK-2) 34.0 ng/mL (0-4.0) H* 11/08/18 05:18 CK/CKMB % Calc 0.0 % (<4) 11/08/18 05:18 Troponin I < 0.02 ng/mL (0-1.5) 11/08/18 05:18 C-Reactive Protein 310.70 mg/L (0-3.0) H 11/07/18 15:27 Total Protein 5.1 g/dL (6.4-8.2) L 11/10/18 04:02 Albumin 2.1 g/dL (3.4-5.0) L 11/10/18 04:02 Globulin 3.0 g/dL (2.5-4.5) 11/10/18 04:02 Albumin/Globulin Ratio 0.7 Ratio (1.1-2.1) L 11/10/18 04:02 Specimen Type Catherized urine 11/07/18 18:32 Urine Color Yellow (YELLOW) 11/07/18 18:32 Urine Appearance Slightly hazy (CLEAR) 11/07/18 18:32 Urine pH 5.0 (5.0 - 8.0) 11/07/18 18:32 Ur Specific [place] 1.025 (1.000-1.030) 11/07/18 18:32 Urine Protein 2+ (NEGATIVE) 11/07/18 18:32 Urine Glucose (UA) Negative (NEGATIVE) 11/07/18 18:32 Urine Ketones Negative (NEGATIVE) 11/07/18 18:32 Urine Occult Blood 5+ (NEGATIVE) 11/07/18 18:32 Urine Nitrite Negative (NEGATIVE) 11/07/18 18:32 Urine Bilirubin Negative (NEGATIVE) 11/07/18 18:32 Urine Urobilinogen Normal (NORMAL) 11/07/18 18:32 Ur Leukocyte Esterase Negative (NEGATIVE) 11/07/18 18:32 Urine RBC 10-20 /HPF (NONE SEEN) 11/07/18 18:32 Urine WBC 0-2 /HPF (NONE SEEN) 11/07/18 18:32 Ur Squamous Epith Cells Few /HPF (NEGATIVE) 11/07/18 18:32 Amorphous Sediment 2+ /HPF (NEGATIVE) 11/07/18 18:32 Urine Bacteria Trace /HPF (NEGATIVE) 11/07/18 18:32 Hyaline Casts Few /LPF (NEGATIVE) 11/07/18 18:32 Ur Culture Indicated? No/not indicated 11/07/18 18:32 Urine Opiates Screen Negative (NEG=<300) 11/07/18 18:32 Urine Methadone Screen Negative (NEG=<300) 11/07/18 18:32 Ur Barbiturates Screen Negative (NEG=<200) 11/07/18 18:32 Ur Phencyclidine Scrn Negative (NEG=<25) 11/07/18 18:32 Ur Amphetamines Screen Positive (NEG=<1000) 11/07/18 18:32 U Benzodiazepines Scrn Positive (NEG=<200) 11/07/18 18:32 Urine Cocaine Screen Negative (NEG=<300) 11/07/18 18:32 U Marijuana (THC) Screen Negative (NEG=<50) 11/07/18 18:32 - Assessment and Plan 1: rhabdomyolysis with Lt thigh and Lt arm compartment syndrome (improving ). acute renal injury (improving ). chronic back pain and disc disease (followed by his PCP for pain management ). chronic anxiety and drug dependency. started on oral pain medication . will reduce IVF and control the pain and insomnia .
[2018-11-11 05:52] LABS: BASOPHILS % (AUTO) 0.5 % (0.2-1.0); EOSINOPHILS # (AUTO) 0.3 x10^3/uL (0.0-0.2); EOSINOPHILS % (AUTO) 3.6 % (0.9-2.9); HEMATOCRIT 30.3 % (42.0-54.0); HEMOGLOBIN 10.5 g/dL (13.5-18.0); LYMPHOCYTES # (AUTO) 1.7 X10^3/uL (1.3-2.9); MEAN CORPUSCULAR HEMOGLOBIN 29.9 pg (27.0-34.0); MEAN CORPUSCULAR HGB CONC 34.5 g/dL (33.0-35.0); MEAN CORPUSCULAR VOLUME 86.7 fL (80.0-100.0); MEAN PLATELET VOLUME 8.9 fL (7.4-11.0); MONOCYTES % (AUTO) 12.1 % (0.0-13.0); NEUTROPHILS # (AUTO) 4.9 x10^3/uL (2.2-4.8); NEUTROPHILS % (AUTO) 61.8 % (42.0-75.0); PLATELET COUNT 171 X10^3/uL (150.0-450.0); RED CELL DISTRIBUTION WIDTH 13.5 % (11.6-16.5); WHITE BLOOD COUNT 7.9 X10^3/uL (3.6-10.0)
[2018-11-11] MEDS: NS 1000 ML 1,000 ML IV SCH ×3 (06:12→15:46)
[2018-11-11] MEDS: XANAX PO SCH ×3 (06:13→22:10)
[2018-11-11] MEDS: SUBOXONE FILM SL SCH ×3 (06:13→22:10)
[2018-11-11 06:26] LABS: ALANINE AMINOTRANSFERASE 88 Units/L (12-78); ALBUMIN 2.4 g/dL (3.4-5.0); ALKALINE PHOSPHATASE 52 Units/L (46-116); ASPARTATE AMINO TRANSFERASE 197 Units/L (15-37); BLOOD UREA NITROGEN 4 mg/dL (7-18); CALCIUM 8.2 mg/dL (8.5-10.1); CARBON DIOXIDE 31.1 mmol/L (21-32); CHLORIDE 103 mmol/L (98-107); COR CA(FOR HYPOALB) 9.5 mg/dL (8.5-10.1); CREATININE 0.66 mg/dL (0.70-1.30); MAGNESIUM 1.4 mg/dL (1.7-2.9); SODIUM 139 mmol/L (136-145); TOTAL PROTEIN 5.5 g/dL (6.4-8.2); eGFR NON BLACK RACES > 60 (>60)
[2018-11-11 06:58] LABS: CREATINE KINASE 7709 Units/L (39-308)
[2018-11-11 07:14] LABS: PLATELET MORPHOLOGY COMMENT NORMAL (NORMAL)
[2018-11-11] MEDS: ALBUMIN HUMAN 25%- 100 ML 100 ML IV SCH (08:01)
[2018-11-11] MEDS: LOVENOX INJ 40 MG SYR SC SCH (08:03)
--- NOTE | 2018-11-11 09:10 | MRI ---
History: Low back pain and left leg paresthesias Exam: MRI lumbar spine without contrast Comparison: None Technique: Routine multiplanar multisequence imaging was performed through the lumbar spine without contrast. Findings: There is [id number] disc space narrowing throughout with diffuse mild disc desiccation. No fracture or subluxation is seen. The vertebral body height is well maintained throughout. The conus is normal. The bone marrow signal is normal throughout. There are no pars defects. There is a minimal central disc bulge at L4-5 causing minimal dural sac effacement. There is a small central disc bulge at L5-S1 causing mild anterior dural sac effacement. There are mild to moderate hypertrophic changes of the facets throughout causing minimal spinal stenosis throughout. The paravertebral soft tissues are normal. IMPRESSION: Mild degenerative disc changes throughout with no acute abnormality seen. Small central disc bulge at L5-S1. Minimal disc bulge at L4-5. Mild osteoarthritic changes of the facets throughout causing minimal spinal stenosis throughout. Reported By:
[2018-11-11] MEDS: LEXAPRO PO SCH (10:39)
[2018-11-11] MEDS ORDERED: NICOTINE PATCH ONE (10:42)
[2018-11-11] MEDS ORDERED: LEXAPRO ONE (10:47)
[2018-11-11] MEDS: NICOTINE PATCH TD SCH (10:51)
[2018-11-11] MEDS: PERCOCET TAB 5/325 MG PO PRN ×2 (12:30→22:15)
--- NOTE | 2018-11-11 13:55 | PCM.PROG ---
Progress Note - Progress Note for Day of Date of Exam: 11/09/18 - Subjective Subjective: WAS ADMITTED FOR ACUTE RENAL FAILURE AND RHABDOMYOLYSIS. THERE WAS SOME CONCERN FOR COMPARTMENT SYNDROME. ON ADMISSION, HE WAS UNABLE TO MOVE HIS LEFT LEG AND WAS NOTED WITH SEVERE WEAKNESS. ON MORNING ROUNDS, HE IS ALERT AND ORIENTED, LYING IN BED. LEFT UPPER AND LOWER EXTREMITIES ARE NOTED WITH MARKED EDEMA. HE IS ABLE TO MOVE HIS LEFT ARM, BUT IS NOT ABLE TO MOVE HIS LEFT LEG THIS MORNING. IT IS NOTED WITH DECREASED SENSATION. HIS VITALS ON MORNING ROUNDS WERE 97.5-99-23-100%-152/78. LABS WERE OBTAINED. ABNORMAL LAB VALUES INCLUDE THE FOLLOWING: RBC 3.59, HGB 10.7, HCT 30.6, PLT COUNT 120, SODIUM 135, BUN 20, GLUCOSE 107, CALCIUM 8.0, MAGNESIUM 1.6, AST 339, ALT 103, CREATINE KINASE 17,968, TOTAL PROTEIN 5.0, ALBUMIN 1.9. HE IS CURRENTLY RECEIVING NORMAL SALINE AT 150ML/HR, MAGNESIUM REPLACEMENT, AND LOVENOX 40MG SC DAILY. TODAY, WE WILL START ALBUMIN 25% IV DAILY. OTHERWISE, WE WILL CONTINUE WITH CURRENT PLAN OF CARE. CONTINUES TO FOLLOW PATIENT WELL. WE WILL FOLLOW UP WITH AM LABS AND CONTINUE TO [facility]. - Past Medical Family Social History Past Med/Fam/Surg Hx: No changes since H&P Allergies: Allergies No Known Drug Allergies Allergy (Verified 11/07/18 14:42) - Review of Systems ROS: No change since H&P - Vital Signs and I&O's Vital Signs: Temperature 99.4 F Pulse Rate [Apical] 115 Pulse Rate 117 Respiratory Rate 21 Blood Pressure [Right Arm] 121/75 Blood Pressure 131/75 O2 Sat by Pulse Oximetry 97 Intake and Output: Intake & Output 11/09/18 11/10/18 11/11/18 11/12/18 11:59 11:59 11:59 11:59 Intake Total 6539 / 6539 7019 / 7019 6379 / 6379 Output Total 3400 / 3400 6450 / 6450 5250 / 5250 Balance 3139 / 3139 569 / 569 1129 / 1129 - Physical Exam Oriented: Normal Eyes: Other (blind Rt eye) Ear: Normal Nose: Normal Respiratory: Normal Cardiovascular: Normal : Normal Auscultation: Bowel Sounds: Normal Palpation: Normal Tenderness: Normal, LLQ Skin: negative: Maculopapular Musculoskeletal: Left (Lt thigh swelling is down to the knee with erythema involving the medial thigh . paradichlorobenzene tender to pressure , sensation is better today .distal pulses atr ++.Lt arm is still edymetous but able to move the elbow and wrist , radial pulse is ++) Psychiatric: Normal Mood Description: Calm Affect: Normal Speech Pattern: Clear - Laboratory and Diagnostics Result Diagrams: 11/11/18 03:57 11/11/18 03:57 Labs: Laboratory WBC 7.9 X10^3/uL (3.6-10.0) 11/11/18 03:57 RBC 3.50 X10^6/uL (4.7-6.0) L 11/11/18 03:57 Hgb 10.5 g/dL (13.5-18.0) L 11/11/18 03:57 Hct 30.3 % (42.0-54.0) L 11/11/18 03:57 MCV 86.7 fL (80.0-100.0) 11/11/18 03:57 MCH 29.9 pg (27.0-34.0) 11/11/18 03:57 MCHC 34.5 g/dL (33.0-35.0) 11/11/18 03:57 RDW 13.5 % (11.6-16.5) 11/11/18 03:57 Plt Count 171 X10^3/uL (150.0-450.0) 11/11/18 03:57 Plt Count Comment Adequate (ADEQUATE) 11/11/18 03:57 MPV 8.9 fL (7.4-11.0) 11/11/18 03:57 Neut % (Auto) 61.8 % (42.0-75.0) 11/11/18 03:57 Lymph % (Auto) 22.0 % (21.0-51.0) 11/11/18 03:57 [place] % (Auto) 12.1 % (0.0-13.0) 11/11/18 03:57 Eos % (Auto) 3.6 % (0.9-2.9) H 11/11/18 03:57 Baso % (Auto) 0.5 % (0.2-1.0) 11/11/18 03:57 Neut # (Auto) 4.9 x10^3/uL (2.2-4.8) H 11/11/18 03:57 Lymph # (Auto) 1.7 X10^3/uL (1.3-2.9) 11/11/18 03:57 [place] # (Auto) 1.0 x10^3/uL (0.3-0.8) H 11/11/18 03:57 Eos # (Auto) 0.3 x10^3/uL (0.0-0.2) H 11/11/18 03:57 Baso # (Auto) 0.0 X10^3/uL (0.0-0.1) 11/11/18 03:57 Absolute Nucleated RBC 0.1 /100WBC 11/11/18 03:57 Total Counted 100 11/11/18 03:57 Neutrophils % (Manual) 64 % (39-76) 11/11/18 03:57 Lymphocytes % (Manual) 26 % (13-43) 11/11/18 03:57 Monocytes % (Manual) 5 % (4-9) 11/11/18 03:57 Eosinophils % (Manual) 5 % (0-6) 11/11/18 03:57 Plt Morphology Comment Normal (NORMAL) 11/11/18 03:57 RBC Morphology Normal (NORMAL) 11/11/18 03:57 INR Target Range - 11/07/18 15:27 INR 1.14 (0.8-1.3) 11/07/18 15:27 APTT 30.6 SECONDS (22.9-36.5) 11/07/18 15:27 PTT Comment - 11/07/18 15:27 Sodium 139 mmol/L (136-145) 11/11/18 03:57 Corrected Sodium TNP 11/11/18 03:57 Potassium 3.3 mmol/L (3.5-5.1) L 11/11/18 03:57 Chloride 103 mmol/L (98-107) 11/11/18 03:57 Carbon Dioxide 31.1 mmol/L (21-32) 11/11/18 03:57 BUN 4 mg/dL (7-18) L 11/11/18 03:57 Creatinine 0.66 mg/dL (0.70-1.30) L 11/11/18 03:57 Est GFR (MDRD) Af Amer > 60 (>60) 11/11/18 03:57 Est GFR (MDRD) Non-Af > 60 (>60) 11/11/18 03:57 Glucose 98 mg/dL (65-99) 11/11/18 03:57 Lactic Acid 0.8 mmol/L (0.4-2.0) 11/07/18 15:27 Calcium 8.2 mg/dL (8.5-10.1) L 11/11/18 03:57 Corrected Calcium 9.5 mg/dL (8.5-10.1) 11/11/18 03:57 Magnesium 1.4 mg/dL (1.7-2.9) L 11/11/18 03:57 Total Bilirubin 0.60 mg/dL (0.2-1.0) 11/11/18 03:57 AST 197 Units/L (15-37) H 11/11/18 03:57 ALT 88 Units/L (12-78) H 11/11/18 03:57 Alkaline Phosphatase 52 Units/L (46-116) 11/11/18 03:57 Creatine Kinase 7709 Units/L (39-308) H 11/11/18 03:57 CK-MB (CK-2) 34.0 ng/mL (0-4.0) H* 11/08/18 05:18 CK/CKMB % Calc 0.0 % (<4) 11/08/18 05:18 Troponin I < 0.02 ng/mL (0-1.5) 11/08/18 05:18 C-Reactive Protein 310.70 mg/L (0-3.0) H 11/07/18 15:27 Total Protein 5.5 g/dL (6.4-8.2) L 11/11/18 03:57 Albumin 2.4 g/dL (3.4-5.0) L 11/11/18 03:57 Globulin 3.1 g/dL (2.5-4.5) 11/11/18 03:57 Albumin/Globulin Ratio 0.8 Ratio (1.1-2.1) L 11/11/18 03:57 Specimen Type Catherized urine 11/07/18 18:32 Urine Color Yellow (YELLOW) 11/07/18 18:32 Urine Appearance Slightly hazy (CLEAR) 11/07/18 18:32 Urine pH 5.0 (5.0 - 8.0) 11/07/18 18:32 Ur Specific [place] 1.025 (1.000-1.030) 11/07/18 18:32 Urine Protein 2+ (NEGATIVE) 11/07/18 18:32 Urine Glucose (UA) Negative (NEGATIVE) 11/07/18 18:32 Urine Ketones Negative (NEGATIVE) 11/07/18 18:32 Urine Occult Blood 5+ (NEGATIVE) 11/07/18 18:32 Urine Nitrite Negative (NEGATIVE) 11/07/18 18:32 Urine Bilirubin Negative (NEGATIVE) 11/07/18 18:32 Urine Urobilinogen Normal (NORMAL) 11/07/18 18:32 Ur Leukocyte Esterase Negative (NEGATIVE) 11/07/18 18:32 Urine RBC 10-20 /HPF (NONE SEEN) 11/07/18 18:32 Urine WBC 0-2 /HPF (NONE SEEN) 11/07/18 18:32 Ur Squamous Epith Cells Few /HPF (NEGATIVE) 11/07/18 18:32 Amorphous Sediment 2+ /HPF (NEGATIVE) 11/07/18 18:32 Urine Bacteria Trace /HPF (NEGATIVE) 11/07/18 18:32 Hyaline Casts Few /LPF (NEGATIVE) 11/07/18 18:32 Ur Culture Indicated? No/not indicated 11/07/18 18:32 Urine Opiates Screen Negative (NEG=<300) 11/07/18 18:32 Urine Methadone Screen Negative (NEG=<300) 11/07/18 18:32 Ur Barbiturates Screen Negative (NEG=<200) 11/07/18 18:32 Ur Phencyclidine Scrn Negative (NEG=<25) 11/07/18 18:32 Ur Amphetamines Screen Positive (NEG=<1000) 11/07/18 18:32 U Benzodiazepines Scrn Positive (NEG=<200) 11/07/18 18:32 Urine Cocaine Screen Negative (NEG=<300) 11/07/18 18:32 U Marijuana (THC) Screen Negative (NEG=<50) 11/07/18 18:32
--- NOTE | 2018-11-11 14:00 | PCM.PROG ---
Progress Note - Progress Note for Day of Date of Exam: 11/10/18 - Subjective Subjective: WAS ADMITTED FOR ACUTE RENAL FAILURE AND RHABDOMYOLYSIS. THERE WAS SOME CONCERN FOR COMPARTMENT SYNDROME. ON ADMISSION, HE WAS UNABLE TO MOVE HIS LEFT LEG AND WAS NOTED WITH SEVERE WEAKNESS. ON MORNING ROUNDS, HE IS ALERT AND ORIENTED, LYING IN BED. LEFT UPPER AND LOWER EXTREMITIES CONTINUE WITH EDEMA, BUT SLIGHT DECREASE SINCE YESTERDAY. HE HAS LITTLE MOVEMENT TO HIS LEFT LEG TODAY. IT CONTINUES WITH DECREASED SENSATION. HIS VITALS ON MORNING ROUNDS WERE 98.8-98-16-99%-120/69. LABS WERE OBTAINED. ABNORMAL LAB VALUES INCLUDE THE FOLLOWING: RBC 3.32, HGB 10.0, HCT 28.3, POTASSIUM 3.4, CALCIUM 8.1, AST 262, ALT 89, ALK PHOS 43, CREATINE KINASE 12,381, TOTAL PROTEIN 5.1, ALBUMIN 2.1. HE IS CURRENTLY RECEIVING NORMAL SALINE AT 150ML/HR, MAGNESIUM REPLACEMENT, AND LOVENOX 40MG SC DAILY, AND ALBUMIN 25% IV DAILY. WE WILL CONTINUE WITH CURRENT PLAN OF CARE. CONTINUES TO FOLLOW PATIENT WELL. WE WILL FOLLOW UP WITH AM LABS AND CONTINUE TO [facility]. - Past Medical Family Social History Past Med/Fam/Surg Hx: No changes since H&P Allergies: Allergies No Known Drug Allergies Allergy (Verified 11/07/18 14:42) - Review of Systems ROS: No change since H&P - Vital Signs and I&O's Vital Signs: Temperature 99.4 F Pulse Rate [Apical] 115 Pulse Rate 117 Respiratory Rate 21 Blood Pressure [Right Arm] 121/75 Blood Pressure 131/75 O2 Sat by Pulse Oximetry 97 Intake and Output: Intake & Output 11/09/18 11/10/18 11/11/18 11/12/18 11:59 11:59 11:59 11:59 Intake Total 6539 / 6539 7019 / 7019 6379 / 6379 Output Total 3400 / 3400 6450 / 6450 5250 / 5250 Balance 3139 / 3139 569 / 569 1129 / 1129 - Physical Exam Oriented: Normal Eyes: Other (blind Rt eye) Ear: Normal Nose: Normal Respiratory: Normal Cardiovascular: Normal : Normal Auscultation: Bowel Sounds: Normal Tenderness: Normal, LLQ Skin: negative: Maculopapular Musculoskeletal: Left (Lt thigh swelling is down to the knee with erythema involving the medial thigh . oxide furnace tender to pressure , sensation is better today .distal pulses atr ++.Lt arm is still edymetous but able to move the elbow and wrist , radial pulse is ++) Psychiatric: Normal Mood Description: Calm Affect: Normal Speech Pattern: Clear - Laboratory and Diagnostics Result Diagrams: 11/11/18 03:57 11/11/18 03:57 Labs: Laboratory WBC 7.9 X10^3/uL (3.6-10.0) 11/11/18 03:57 RBC 3.50 X10^6/uL (4.7-6.0) L 11/11/18 03:57 Hgb 10.5 g/dL (13.5-18.0) L 11/11/18 03:57 Hct 30.3 % (42.0-54.0) L 11/11/18 03:57 MCV 86.7 fL (80.0-100.0) 11/11/18 03:57 MCH 29.9 pg (27.0-34.0) 11/11/18 03:57 MCHC 34.5 g/dL (33.0-35.0) 11/11/18 03:57 RDW 13.5 % (11.6-16.5) 11/11/18 03:57 Plt Count 171 X10^3/uL (150.0-450.0) 11/11/18 03:57 Plt Count Comment Adequate (ADEQUATE) 11/11/18 03:57 MPV 8.9 fL (7.4-11.0) 11/11/18 03:57 Neut % (Auto) 61.8 % (42.0-75.0) 11/11/18 03:57 Lymph % (Auto) 22.0 % (21.0-51.0) 11/11/18 03:57 [place] % (Auto) 12.1 % (0.0-13.0) 11/11/18 03:57 Eos % (Auto) 3.6 % (0.9-2.9) H 11/11/18 03:57 Baso % (Auto) 0.5 % (0.2-1.0) 11/11/18 03:57 Neut # (Auto) 4.9 x10^3/uL (2.2-4.8) H 11/11/18 03:57 Lymph # (Auto) 1.7 X10^3/uL (1.3-2.9) 11/11/18 03:57 [place] # (Auto) 1.0 x10^3/uL (0.3-0.8) H 11/11/18 03:57 Eos # (Auto) 0.3 x10^3/uL (0.0-0.2) H 11/11/18 03:57 Baso # (Auto) 0.0 X10^3/uL (0.0-0.1) 11/11/18 03:57 Absolute Nucleated RBC 0.1 /100WBC 11/11/18 03:57 Total Counted 100 11/11/18 03:57 Neutrophils % (Manual) 64 % (39-76) 11/11/18 03:57 Lymphocytes % (Manual) 26 % (13-43) 11/11/18 03:57 Monocytes % (Manual) 5 % (4-9) 11/11/18 03:57 Eosinophils % (Manual) 5 % (0-6) 11/11/18 03:57 Plt Morphology Comment Normal (NORMAL) 11/11/18 03:57 RBC Morphology Normal (NORMAL) 11/11/18 03:57 INR Target Range - 11/07/18 15:27 INR 1.14 (0.8-1.3) 11/07/18 15:27 APTT 30.6 SECONDS (22.9-36.5) 11/07/18 15:27 PTT Comment - 11/07/18 15:27 Sodium 139 mmol/L (136-145) 11/11/18 03:57 Corrected Sodium TNP 11/11/18 03:57 Potassium 3.3 mmol/L (3.5-5.1) L 11/11/18 03:57 Chloride 103 mmol/L (98-107) 11/11/18 03:57 Carbon Dioxide 31.1 mmol/L (21-32) 11/11/18 03:57 BUN 4 mg/dL (7-18) L 11/11/18 03:57 Creatinine 0.66 mg/dL (0.70-1.30) L 11/11/18 03:57 Est GFR (MDRD) Af Amer > 60 (>60) 11/11/18 03:57 Est GFR (MDRD) Non-Af > 60 (>60) 11/11/18 03:57 Glucose 98 mg/dL (65-99) 11/11/18 03:57 Lactic Acid 0.8 mmol/L (0.4-2.0) 11/07/18 15:27 Calcium 8.2 mg/dL (8.5-10.1) L 11/11/18 03:57 Corrected Calcium 9.5 mg/dL (8.5-10.1) 11/11/18 03:57 Magnesium 1.4 mg/dL (1.7-2.9) L 11/11/18 03:57 Total Bilirubin 0.60 mg/dL (0.2-1.0) 11/11/18 03:57 AST 197 Units/L (15-37) H 11/11/18 03:57 ALT 88 Units/L (12-78) H 11/11/18 03:57 Alkaline Phosphatase 52 Units/L (46-116) 11/11/18 03:57 Creatine Kinase 7709 Units/L (39-308) H 11/11/18 03:57 CK-MB (CK-2) 34.0 ng/mL (0-4.0) H* 11/08/18 05:18 CK/CKMB % Calc 0.0 % (<4) 11/08/18 05:18 Troponin I < 0.02 ng/mL (0-1.5) 11/08/18 05:18 C-Reactive Protein 310.70 mg/L (0-3.0) H 11/07/18 15:27 Total Protein 5.5 g/dL (6.4-8.2) L 11/11/18 03:57 Albumin 2.4 g/dL (3.4-5.0) L 11/11/18 03:57 Globulin 3.1 g/dL (2.5-4.5) 11/11/18 03:57 Albumin/Globulin Ratio 0.8 Ratio (1.1-2.1) L 11/11/18 03:57 Specimen Type Catherized urine 11/07/18 18:32 Urine Color Yellow (YELLOW) 11/07/18 18:32 Urine Appearance Slightly hazy (CLEAR) 11/07/18 18:32 Urine pH 5.0 (5.0 - 8.0) 11/07/18 18:32 Ur Specific [place] 1.025 (1.000-1.030) 11/07/18 18:32 Urine Protein 2+ (NEGATIVE) 11/07/18 18:32 Urine Glucose (UA) Negative (NEGATIVE) 11/07/18 18:32 Urine Ketones Negative (NEGATIVE) 11/07/18 18:32 Urine Occult Blood 5+ (NEGATIVE) 11/07/18 18:32 Urine Nitrite Negative (NEGATIVE) 11/07/18 18:32 Urine Bilirubin Negative (NEGATIVE) 11/07/18 18:32 Urine Urobilinogen Normal (NORMAL) 11/07/18 18:32 Ur Leukocyte Esterase Negative (NEGATIVE) 11/07/18 18:32 Urine RBC 10-20 /HPF (NONE SEEN) 11/07/18 18:32 Urine WBC 0-2 /HPF (NONE SEEN) 11/07/18 18:32 Ur Squamous Epith Cells Few /HPF (NEGATIVE) 11/07/18 18:32 Amorphous Sediment 2+ /HPF (NEGATIVE) 11/07/18 18:32 Urine Bacteria Trace /HPF (NEGATIVE) 11/07/18 18:32 Hyaline Casts Few /LPF (NEGATIVE) 11/07/18 18:32 Ur Culture Indicated? No/not indicated 11/07/18 18:32 Urine Opiates Screen Negative (NEG=<300) 11/07/18 18:32 Urine Methadone Screen Negative (NEG=<300) 11/07/18 18:32 Ur Barbiturates Screen Negative (NEG=<200) 11/07/18 18:32 Ur Phencyclidine Scrn Negative (NEG=<25) 11/07/18 18:32 Ur Amphetamines Screen Positive (NEG=<1000) 11/07/18 18:32 U Benzodiazepines Scrn Positive (NEG=<200) 11/07/18 18:32 Urine Cocaine Screen Negative (NEG=<300) 11/07/18 18:32 U Marijuana (THC) Screen Negative (NEG=<50) 11/07/18 18:32
[2018-11-11] MEDS: K-DUR TAB 20 MEQ PO PRN (15:49)
[2018-11-11] MEDS: MAGNESIUM SULFATE 1 GRAM/100 mL PREMIX 1 GM/100 ML BAG IV PRN ×3 (20:00→22:55)
[2018-11-12] MEDS: NS 1000 ML 1,000 ML IV SCH ×6 (00:04→19:47)
[2018-11-12] MEDS: MAGNESIUM SULFATE 1 GRAM/100 mL PREMIX 1 GM/100 ML BAG IV PRN (00:04)
[2018-11-12] MEDS: PERCOCET TAB 5/325 MG PO PRN ×5 (02:03→23:37)
[2018-11-12 05:22] LABS: BASOPHILS % (AUTO) 0.5 % (0.2-1.0); EOSINOPHILS # (AUTO) 0.3 x10^3/uL (0.0-0.2); EOSINOPHILS % (AUTO) 4.9 % (0.9-2.9); HEMATOCRIT 29.3 % (42.0-54.0); LYMPHOCYTES # (AUTO) 1.7 X10^3/uL (1.3-2.9); LYMPHOCYTES % (AUTO) 26.7 % (21.0-51.0); MEAN CORPUSCULAR HEMOGLOBIN 29.8 pg (27.0-34.0); MEAN CORPUSCULAR HGB CONC 34.3 g/dL (33.0-35.0); MEAN CORPUSCULAR VOLUME 86.7 fL (80.0-100.0); MEAN PLATELET VOLUME 8.4 fL (7.4-11.0); MONOCYTES # (AUTO) 0.9 x10^3/uL (0.3-0.8); MONOCYTES % (AUTO) 13.5 % (0.0-13.0); NEUTROPHILS # (AUTO) 3.5 x10^3/uL (2.2-4.8); NEUTROPHILS % (AUTO) 54.4 % (42.0-75.0); PLATELET COUNT 175 X10^3/uL (150.0-450.0); RED BLOOD COUNT 3.38 X10^6/uL (4.7-6.0); RED CELL DISTRIBUTION WIDTH 13.4 % (11.6-16.5); WHITE BLOOD COUNT 6.4 X10^3/uL (3.6-10.0)
[2018-11-12 05:40] LABS: ALANINE AMINOTRANSFERASE 72 Units/L (12-78); ALBUMIN 2.6 g/dL (3.4-5.0); ALKALINE PHOSPHATASE 47 Units/L (46-116); ASPARTATE AMINO TRANSFERASE 131 Units/L (15-37); BLOOD UREA NITROGEN 3 mg/dL (7-18); CALCIUM 8.3 mg/dL (8.5-10.1); CARBON DIOXIDE 30.9 mmol/L (21-32); CHLORIDE 106 mmol/L (98-107); COR CA(FOR HYPOALB) 9.4 mg/dL (8.5-10.1); MAGNESIUM 1.9 mg/dL (1.7-2.9); SODIUM 140 mmol/L (136-145); TOTAL PROTEIN 5.3 g/dL (6.4-8.2); eGFR NON BLACK RACES > 60 (>60)
[2018-11-12 05:41] LABS: CREATINE KINASE 4405 Units/L (39-308)
[2018-11-12] MEDS: SUBOXONE FILM SL SCH ×3 (06:09→22:02)
[2018-11-12] MEDS: XANAX PO SCH ×3 (06:10→22:01)
[2018-11-12 06:44] LABS: BAND NEUTROPHILS % 3 % (0-10); PLATELET MORPHOLOGY COMMENT NORMAL (NORMAL)
[2018-11-12] MEDS ORDERED: LEXAPRO ONE (09:06)
[2018-11-12] MEDS: LOVENOX INJ 40 MG SYR SC SCH (09:21)
[2018-11-12] MEDS: NICOTINE PATCH TD SCH ×2 (09:22→09:31)
[2018-11-12] MEDS: ALBUMIN HUMAN 25%- 100 ML 100 ML IV SCH (09:22)
[2018-11-12] MEDS: LEXAPRO PO SCH (09:23)
[2018-11-13] MEDS: NS 1000 ML 1,000 ML IV SCH ×2 (01:29→08:53)
[2018-11-13 04:22] VITALS: BP 123/77
[2018-11-13] MEDS: SUBOXONE FILM SL SCH (05:12)
[2018-11-13] MEDS: XANAX PO SCH (05:12)
[2018-11-13] MEDS: PERCOCET TAB 5/325 MG PO PRN ×2 (05:17→09:00)
[2018-11-13 05:57] LABS: BASOPHILS % (AUTO) 0.6 % (0.2-1.0); EOSINOPHILS # (AUTO) 0.3 x10^3/uL (0.0-0.2); EOSINOPHILS % (AUTO) 3.9 % (0.9-2.9); HEMATOCRIT 28.1 % (42.0-54.0); LYMPHOCYTES # (AUTO) 1.7 X10^3/uL (1.3-2.9); LYMPHOCYTES % (AUTO) 22.4 % (21.0-51.0); MEAN CORPUSCULAR HEMOGLOBIN 30.7 pg (27.0-34.0); MEAN CORPUSCULAR HGB CONC 35.7 g/dL (33.0-35.0); MEAN CORPUSCULAR VOLUME 86.1 fL (80.0-100.0); MEAN PLATELET VOLUME 8.3 fL (7.4-11.0); MONOCYTES # (AUTO) 0.8 x10^3/uL (0.3-0.8); NEUTROPHILS # (AUTO) 4.7 x10^3/uL (2.2-4.8); NEUTROPHILS % (AUTO) 62.1 % (42.0-75.0); PLATELET COUNT 182 X10^3/uL (150.0-450.0); RED BLOOD COUNT 3.27 X10^6/uL (4.7-6.0); RED CELL DISTRIBUTION WIDTH 13.6 % (11.6-16.5); WHITE BLOOD COUNT 7.5 X10^3/uL (3.6-10.0)
[2018-11-13 06:31] LABS: ALANINE AMINOTRANSFERASE 72 Units/L (12-78); ALBUMIN 2.7 g/dL (3.4-5.0); ALKALINE PHOSPHATASE 41 Units/L (46-116); ASPARTATE AMINO TRANSFERASE 102 Units/L (15-37); BLOOD UREA NITROGEN 3 mg/dL (7-18); CALCIUM 8.6 mg/dL (8.5-10.1); CARBON DIOXIDE 28.5 mmol/L (21-32); CHLORIDE 106 mmol/L (98-107); COR CA(FOR HYPOALB) 9.6 mg/dL (8.5-10.1); CREATININE 0.55 mg/dL (0.70-1.30); SODIUM 140 mmol/L (136-145); TOTAL PROTEIN 5.2 g/dL (6.4-8.2); eGFR NON BLACK RACES > 60 (>60)
[2018-11-13 06:32] LABS: CREATINE KINASE 2592 Units/L (39-308)
[2018-11-13 06:36] LABS: BAND NEUTROPHILS % 2 % (0-10); PLATELET MORPHOLOGY COMMENT NORMAL (NORMAL)
[2018-11-13] MEDS ORDERED: LEXAPRO ONE (08:19)
[2018-11-13] MEDS: K-DUR TAB 20 MEQ PO PRN (08:54)
[2018-11-13] MEDS: LEXAPRO PO SCH (08:55)
[2018-11-13] MEDS: LOVENOX INJ 40 MG SYR SC SCH (08:55)
[2018-11-13] MEDS: ALBUMIN HUMAN 25%- 100 ML 100 ML IV SCH (08:56)
[2018-11-13] MEDS: NICOTINE PATCH TD SCH (11:31)
== END 2018-11-13 11:45 | disposition home or self-care (01) | DRG 683 ==
LOC: ER 14:37 → ICU 18:44 → MED/SURG 11-12 13:47
PROVIDERS: ADMIT Obstetrics & Gynecology Obstetrics; ATTEND Obstetrics & Gynecology Obstetrics
DX: R94.4 Abnormal results of kidney function studies; R79.82 Elevated C-reactive protein (CRP); R20.8 Other disturbances of skin sensation; G95.0 Syringomyelia and syringobulbia; M25.552 Pain in left hip; J32.9 Chronic sinusitis, unspecified; R55 Syncope and collapse; R26.89 Other abnormalities of gait and mobility; S40.022A Contusion of left upper arm, initial encounter; Y93.E1 Activity, personal bathing and showering; N17.8 Other acute kidney failure; M62.82 Rhabdomyolysis; R94.31 Abnormal electrocardiogram [ECG] [EKG]; E87.1 Hypo-osmolality and hyponatremia; Y92.002 Bathroom of unspecified non-institutional (private) residence as the place of occurrence of the external cause; M25.532 Pain in left wrist; W17.89XA Other fall from one level to another, initial encounter
CPT/HCPCS: 36415; 70551; 72141; 72146; 72148; 73070; 73100; 73501; 80048; 80053; 80307; 81001; 82550; 82553; 83605; 83735; 84484; 85025; 85610; 85730; 86140; 93005; 93971; 96365; 96367; 97110; 97116; 97161; 97166; 97530; 99284; A4222; P9047; G0434; J0744; J1650; J2270; J3475; J7030; J7120